=== PATIENT | male | born 1955 | race Caucasian/White ===

== ENCOUNTER 2018-12-09 13:12 | Day surgery (SDC) | payer BC ==
[~2018-12-09] VITALS: Ht 180.3 cm; Wt 74.0 kg
[2018-12-09 14:00] VITALS: Ht 180.3 cm; Wt 74.0 kg
[2018-12-09] MEDS ORDERED: [UNRECOGNIZED DRUG - OTHER] (14:05)
[2018-12-09 14:12] VITALS: BP 124/64; PULSE 57; RESP 18
--- NOTE | 2018-12-09 14:19 | PREAC ---
Date/Time of Note Date/Time of Note DATE: 12/09/18 TIME: 14:18 Anesthesia Eval and Record Evaluation Time Pre-Procedure Interview DATE: 12/09/18 TIME: 14:18 Age 63 Sex male NPO: 8 hrs Preoperative diagnosis h/o colon CA Planned procedure colonoscopy Past Medical History Past Medical History: Includes GI: Other (h/o colon resection for CA) Surgery & Anesthesia Issues No known issue Meds Anticoagulation: No Beta Dread within 24 hr: No Reason Beta Dread not given: Pt. not on B-Dread Reported Medications [Diaherbs] No Conflict Check 12/09/18 Meds reviewed: Yes Allergies Coded Allergies: No Known Drug Allergies (Verified Allergy, Unknown, 12/09/18) Allergies Reviewed: Yes Labs/Studies Labs Reviewed: Reviewed by anesthesiologist test: N/A Studies: ECG, CXR Pre-procedure Exam Airway: Adequate mouth opening, Adequate thyromental dist Mallampati: Mallampati III Teeth: Normal Lung: Normal Heart: Normal ASA Physical Status ASA physical status: 2 Emergency: None Planned Anesthetic General/MAC: MAC Planned Pain Management Parenteral pain med Pre-operative Attestations Prior to commencing anesthesia and surgery, the patient was re-evaluated, there was verification of: *The patient's identity *The results of appropriate recent lab work and preoperative vital signs *The above evaluation not changing prior to induction *Anesthetic plan, risk benefits, alternative and complications discussed with patient/family; questions answered; patient/family understands, accepts and wishes to proceed. ASH CANTU MD Dec 09, 2018 14:19
[2018-12-09] MEDS ORDERED: PROPOFOL 40 ML ONE (14:20)
[2018-12-09 15:41] VITALS: BP 144/61; RESP 20
--- NOTE | 2018-12-09 15:42 | HPN ---
Date/Time of Note Date/Time of Note DATE: 12/09/18 TIME: 15:42 Interval H&P Admission Note Pt. seen H&P reviewed: No system changes HAILE JACK Dec 09, 2018 15:42
--- NOTE | 2018-12-10 07:26 | PAC ---
Date/Time of Note Date/Time of Note DATE: 12/10/18 TIME: 07:26 Post-Anesthesia Notes Post-Anesthesia Note Last documented vital signs Vital Signs Date Temp Pulse Resp B/P (MAP) Pulse Ox O2 O2 Flow FiO2 Time Delivery Rate 12/09/18 20 144/61 99 15:41 (88) 12/09/18 98.0 57 Room Air 14:12 Activity: WNL Respiratory function: WNL Cardiovascular function: WNL Mental status: Baseline Pain reasonably controlled: Yes Hydration appropriate: Yes Nausea/Vomiting absent: Yes ASH CANTU MD Dec 10, 2018 07:26
== END 2018-12-09 15:52 | disposition home or self-care (01) ==
LOC: GIL 13:12
PROVIDERS: ATTEND Internal Medicine Gastroenterology
DX: Z12.11 Encounter for screening for malignant neoplasm of colon (principal); K64.8 Other hemorrhoids; Z85.038 Personal history of other malignant neoplasm of large intestine
CPT/HCPCS: 88305